=== PATIENT | male | born 1945 | race Caucasian/White ===

== ENCOUNTER → 2017-01-06 | Outpatient (CLI) | payer BC ==
[~2017-01-06] MED LIST: ASPI81TA28 PO; CETI10TA84 PO; COLE1TAB5 PO; MULT-506 PO; NIZA150C3 PO; OMEG10007 PO
[2017-01-06 11:16] LABS: ALT/SGPT 25 U/L (12-78); BLOOD UREA NITROGEN 21 mg/dl (7-18); BUN/CREATININE RATIO 18.8 (10-20); CALCIUM 8.7 mg/dl (8.5-10.1); CARBON DIOXIDE 26 mmol/L (21-32); CHLORIDE 107 mmol/L (98-107); GLUCOSE 105 mg/dl (70-99); SODIUM 143 mmol/L (136-145)
[2017-01-06 11:19] LABS: CHOLESTEROL 188 mg/dl (0-200); CHOLESTEROL/HDL RATIO 4.4; HDL CHOLESTEROL 43 mg/dl; LDL CHOLESTEROL CALCULATED 113 mg/dl; TRIGLYCERIDES 158 mg/dl (0-150); VERY LOW DENSITY LIPOPROT CALC 32 mg/dl
== END | disposition home or self-care (01) ==
LOC: C.LABBC 08:03
PROVIDERS: ATTEND Family Medicine
DX: E78.5 Hyperlipidemia, unspecified (principal)

== ENCOUNTER → 2017-05-15 | Day surgery (SDC) | payer BC ==
[2017-05-02 12:35] VITALS: Ht 177.8 cm; Wt 79.5 kg
[~2017-05-15] VITALS: Ht 177.8 cm; Wt 79.5 kg
[~2017-05-15] MED LIST changes: +ATROPINE SULFATE 0.1 MG/ML 5ML SYR IV PRN; +EpHEDrine SULFATE INJ 50 MG/ML AMP IV PRN; +LIDOCAINE HCL 2% 2 ML VIAL (20MG/ML) ONE; +PROPOFOL IV EMULSION 10 MG/ML 20 ML VIAL IV ONE
--- NOTE | 2017-05-15 15:19 | Endo History and Physical ---
History & Physical Date of Service: May 15, 2017. Chief Complaint: HISTORY OF POLYPS Referring Physician: DR BACON History of Present Illness 71 yo CM who presents for colonoscopy secondary to history of colon polyps. Past Surgical History Hx Cardiac Surgery: No Hx Internal Defibrillator: No Hx Pacemaker: No Hx Abdominal Surgery: No Hx of Implantable Prosthesis: No Hx Post-Op Nausea and Vomiting: No Hx Cancer Surgery: No Hx Thoracic Surgery: No Hx Orthopedic: Yes (RT HAND SURGERY) Hx Urinary Tract Surgery: No Family History Colon CA Social History Smoking Status: Never Smoker Hx Substance Use: No Hx Alcohol Use: Yes (OCCASIONAL BEER) Allergies Coded Allergies: No Known Allergies (Unverified , NONE, 05/15/17) Current Medications Reported Home Medications Medications Dose Route/Sig Max Daily Dose Days Date Category Nizatidine 150 Mg Cap 1 Tab PO BID PRN 09/29/16 Reported Zyrtec (Cetirizine HCl) 10 Mg Tab 10 Mg PO DAILY PRN 09/29/16 Reported Aspirin Ec (Aspirin) 81 Mg Tab 81 Mg PO HS 09/29/16 Reported Colestipol Hcl 1 Gm Tab 1 Tab PO BID 09/29/16 Reported [place]-3 (Fish Oil) 1 Ea Cap 1 Cap PO BID 09/18/09 Reported Multivitamin (Multivitamins) Tab 1 Tab PO QAM 09/18/09 Reported Vital Signs Weight (Kilograms): 79.55 Height (Feet): 5 Height (Inches): 10 Date Time Temp Pulse Resp B/P (MAP) Pulse Ox O2 Delivery O2 Flow Rate FiO2 05/15/17 14:14 36.5 57 18 120/68 (85) 95 Room Air Physical Exam General Appearance: WD/WN, no apparent distress Respiratory/Chest: Auscultation: breath sounds normal Cardiovascular: Heart Auscultation: RRR Abdomen: Bowel Sounds: normal Inspection & Palpation: soft, non-distended, no tenderness, guarding & rebound Assessment and Plan Assessment: 71 yo CM who presents for colonoscopy secondary to history of colon polyps. Plan: Proceed with colonoscopy.
--- NOTE | 2017-05-15 15:52 | Discharge Instructions ---
Endoscopy Patient Instructions Date / Procedure(s) Performed May 15, 2017. Colonoscopy Allergy Information Coded Allergies: No Known Allergies (Unverified , NONE, 05/15/17) Discharge Date / Findings May 15, 2017. Colon polyp Internal hemorrhoids Medication Instructions Stopped Medication(s): ASPIRIN 81MG 05/13/17 OK to resume all medications today as prescribed Reported Home Medications Medications Dose Route/Sig Max Daily Dose Days Date Category Nizatidine 150 Mg Cap 1 Tab PO BID PRN 09/29/16 Reported Zyrtec (Cetirizine HCl) 10 Mg Tab 10 Mg PO DAILY PRN 09/29/16 Reported Aspirin Ec (Aspirin) 81 Mg Tab 81 Mg PO HS 09/29/16 Reported Colestipol Hcl 1 Gm Tab 1 Tab PO BID 09/29/16 Reported [place]-3 (Fish Oil) 1 Ea Cap 1 Cap PO BID 09/18/09 Reported Multivitamin (Multivitamins) Tab 1 Tab PO QAM 09/18/09 Reported Provider Instructions Activity Restrictions - No exercising or heavy lifting for 24 hours. - Do not drink alcohol the day of the procedure. - Do not drive a car or operate machinery until the day after the procedure. - Do not make any important decisions or sign important papers in 24 hours after the procedure. Following Day: - Return to full activity which may include returning to work/school. Diet Start your diet with liquids and light foods (jello, soup, juice, toast). Then eat your usual diet if not nauseated. Treatment For Common After Affects For mild abdominal pain, bloating, or excessive gas: - Rest - Eat lightly - Lie on right side Follow-Up Information Follow-up with DR BACON as scheduled Anesthesia Information What You Should Know You have had a procedure that required some medicine to reduce anxiety and discomfort. This treatment is called moderate sedation. After receiving the treatment, you may be sleepy, but you will be able to breathe on your own. The effects of the treatment may last for several hours. Follow these instructions along with Activity/Diet recommendations noted above: * Do NOT do anything where dizziness or clumsiness would be dangerous. * Rest quietly at home today, then you can be up and about tomorrow. * Have a responsible person stay with you the rest of today. * You may have had an I.V. today. If so, you may take the dressing off later today. Recommendations Call your doctor if: * Trouble breathing * Continuous vomiting for more than 24 hours * Temperature above 101 degrees * Severe abdominal pain or bloating * Pain not relieved by pain medicine ordered * There is increased drainage or redness from any incision * A large amount of rectal bleeding greater than 2-3 tablespoons. (If you had a polyp/s removed or have hemorrhoids, a small amount of blood - from the rectum is to be expected.) * You have any unanswered questions or concerns. IN THE EVENT OF A SERIOUS EMERGENCY, GO TO THE NEAREST EMERGENCY ROOM Your discharge instructions were prepared by provider Eric Epps. Patient Instructions Signature Page Richard Sharlene Patient (or Guardian) Signature/Date: I have read and understand the instructions given to me by my caregivers. Caregiver/RN/Doctor Signature/Date: The above-named patient and/or guardian has received patient instructions on this date. + Original Patient Signature Page (only) stays with chart. Please make copy for patient.
--- NOTE | 2017-05-15 15:56 | GI REPORT ---
Procedure Date: 05/15/2017 3:10 PM Procedure: Colonoscopy Indications: High risk colon cancer surveillance: Personal history of colonic polyps Medicines: Monitored Anesthesia Care Complications: No immediate complications. Estimated Blood Loss: Estimated blood loss: none. Procedure: Pre-Anesthesia Assessment: - Prior to the procedure, a History and Physical was performed, and patient medications and allergies were reviewed. The patient's tolerance of previous anesthesia was also reviewed. The risks and benefits of the procedure and the sedation options and risks were discussed with the patient. All questions were answered, and informed consent was obtained. Prior Anticoagulants: The patient has taken aspirin, last dose was 2 days prior to procedure. ASA Grade Assessment: II - A patient with mild systemic disease. After reviewing the risks and benefits, the patient was deemed in satisfactory condition to undergo the procedure. After I obtained informed consent, the scope was passed under direct vision. Throughout the procedure, the patient's blood pressure, pulse, and oxygen saturations were monitored continuously. The Scope was introduced through the anus and advanced to the terminal ileum. The colonoscopy was performed without difficulty. The patient tolerated the procedure well. The quality of the bowel preparation was good. The terminal ileum, ileocecal valve, appendiceal orifice, and rectum were photographed. Findings: A 4 mm polyp was found in the transverse colon. The polyp was sessile. The polyp was removed with a cold snare. Resection and retrieval were complete. Non-bleeding internal hemorrhoids were found during retroflexion. The hemorrhoids were small. Impression: - One 4 mm polyp in the transverse colon, removed with a cold snare. Resected and retrieved. - Non-bleeding internal hemorrhoids. Recommendation: - Resume previous diet. - Continue present medications. - Repeat colonoscopy for surveillance based on pathology results. - Return to primary care physician as previously scheduled. Eric Epps, DO 05/15/2017 3:55:55 PM This report has been signed electronically. Note Initiated On: 05/15/2017 3:10 PM I attest to the content of the Intraoperative Record and orders documented therein, exceptions below
[2017-05-15 16:25] VITALS: BP 117/64; PULSE 53; O2SAT 97
--- NOTE | 2017-05-15 16:34 | Anesthesiology Progress Note ---
Anesthesia Post Op Note Date & Time May 15, 2017 at 16:34 Vital Signs Pain Intensity: 0 Vital Signs Past 12 Hours Date Time Temp Pulse Resp B/P (MAP) Pulse Ox O2 Delivery O2 Flow Rate FiO2 05/15/17 16:25 53 16 117/64 (81) 97 Room Air 05/15/17 16:10 54 16 114/51 (72) 97 Room Air 05/15/17 15:55 56 16 100/50 (67) 97 Room Air 05/15/17 14:14 36.5 57 18 120/68 (85) 95 Room Air Notes Mental Status: alert / awake / arousable, participated in evaluation Pt Amnestic to Procedure: Yes Nausea / Vomiting: adequately controlled Pain: adequately controlled Airway Patency, RR, SpO2: stable & adequate BP & HR: stable & adequate Hydration State: stable & adequate Anesthetic Complications: no major complications apparent
== END | disposition home or self-care (01) ==
LOC: C.GI 13:49
PROVIDERS: ATTEND Internal Medicine
DX: Z12.11 Encounter for screening for malignant neoplasm of colon (principal); Z86.010 Personal history of colon polyps; D12.3 Benign neoplasm of transverse colon; K64.8 Other hemorrhoids

== ENCOUNTER → 2018-01-10 | Outpatient (CLI) | payer BC ==
[~2018-01-10] MED LIST changes: -ATROPINE SULFATE 0.1 MG/ML 5ML SYR IV PRN; -EpHEDrine SULFATE INJ 50 MG/ML AMP IV PRN; -LIDOCAINE HCL 2% 2 ML VIAL (20MG/ML) ONE; -PROPOFOL IV EMULSION 10 MG/ML 20 ML VIAL IV ONE
[2018-01-10 13:55] LABS: BLOOD UREA NITROGEN 20 mg/dl (7-18); CALCIUM 9.2 mg/dl (8.5-10.1); CARBON DIOXIDE 29 mmol/L (21-32); CREATININE 1.06 mg/dl (0.60-1.40); GLUCOSE 104 mg/dl (70-99); SODIUM 139 mmol/L (136-145)
[2018-01-10 14:01] LABS: CHOLESTEROL 223 mg/dl (0-200); LDL CHOLESTEROL CALCULATED 144 mg/dl
== END | disposition home or self-care (01) ==
LOC: C.LABBC 09:07
PROVIDERS: ATTEND Family Medicine
DX: E78.5 Hyperlipidemia, unspecified (principal); Z12.5 Encounter for screening for malignant neoplasm of prostate